=== PATIENT | female | born 1990 | race Caucasian/White ===

== ENCOUNTER 2020-06-23 11:33 | Emergency (ER) | payer SELFPAY ==
[2020-06-23 12:04] LABS: Bilirubin Negative (Negative); Blood, Urine Negative (Negative); Clarity Clear (Clear); Glucose, Urine (Dipstick) Normal (Negative); Ketone, Urine Negative (Negative); Leukocyte Negative Leu/uL (Negative); Nitrite Negative (Negative); Protein, Urine (Dipstick) 20 mg/dL (Neg-Trace); Urobilinogen Normal mg/dL (Less than 2)
[2020-06-23 12:08] LABS: Pregnancy Test - Urine (BHCG) POSITIVE (Negative)
[2020-06-23 12:09] LABS: Pregu Control Background? CLEAR/WHITE (CLR/WHITE); Pregu Control Bar Appear? YES (CONTROL BAR)
[2020-06-23 13:02] LABS: #Basophils 0.1 thou/uL (0.0-0.2); #Lymphocytes 2.2 thou/uL (1.20-3.40); #Monocytes 0.5 thou/uL (0.11-0.59); #Neutrophils 6.3 thou/uL (1.40-6.50); %Basophils 0.7 % (0.0-1.0); %Eosinophils 0.5 % (0.0-10.0); %Lymphocytes 23.9 % (21.0-51.0); %Monocytes 5.6 % (0.0-10.0); %Neutrophils 69.4 % (42.0-75.0); Hemoglobin 15.7 g/dL (12.0-16.0); Mean Corpuscular HGB CONC 33.3 g/dL (32.0-36.0); Mean Corpuscular Hemoglobin 30.2 pg (27.0-31.0); Mean Corpuscular Volume 90.8 fL (78.0-98.0); Mean Platelet Volume 6.5 fL (7.4-10.4); Platelet Count 348 thou/uL (130-400); RBC Distribution Width 11.8 % (11.5-14.5); Red Blood Cell (RBC) Count 5.18 mill/uL (4.20-5.40); White Blood Cell (WBC) Count 9.1 thou/uL (4.8-10.8)
--- NOTE | 2020-06-23 15:27 | ULT ---
ULTRASOUND PELVIC ULTRASOUND TRANSVAGINAL DOPPLER DUPLEX: DATE: 06/23/2020 HISTORY: 29-year-old female with first trimester vaginal bleeding TECHNIQUE: Transabdominal transducer and endovaginal transducer used to visualize intrapelvic contents with jain scale, color-flow, and spectral analysis. FINDINGS: There is an approximately 1 x 0.5 x 0.9 cm oval cystic structure within the endometrial cavity that h as the appearance of a gestational sac. Mean sac diameter of 0.8 cm corresponds to 5 weeks 4 days gestational age. No yolk sac or embryonic pole identified. Abutting the inferior edge of this gestational sac, there is a second structure measuring 0.9 x 0.4 c m, which is hypoechoic, but its echogenicity is higher than that of the gestational sac. It is uncertain whether this is a second gestational sac of a twin filled with abnormal fluid con tents such as blood, or a small subchorionic hemorrhage. The appearance is atypical for both. No free fluid in the cul-de-sac. Bilateral ovaries are normal. No corpus luteal cyst. Blood flow demonstrated in both ovaries by Doppler. IMPRESSION: 1) intrauterine gestational sac corresponding to 5 weeks 4 days gestational age, without yolk sac or embryonic pole. 2) small structure adjacent to gestational sac: Either small subchorionic hemorrhage or second, faile d gestational sac. 3) recommend follow-up pelvic and transvaginal ultrasound in 14 days.
== END 2020-06-23 15:09 | disposition home or self-care (01) ==
LOC: ERS 11:33
DX: O20.0 Threatened abortion (principal); O24.419 Gestational diabetes mellitus in pregnancy, unspecified control; Z79.899 Other long term (current) drug therapy; Z3A.01 Less than 8 weeks gestation of pregnancy
CPT/HCPCS: 36415; 76856; 81003; 81025; 84702; 85025; 86900; 86901